=== PATIENT | female | born 1995 | race Two or more races ===

== ENCOUNTER 2019-08-07 14:53 | Outpatient (CLI) | payer OTHER ==
[2019-08-08] MEDS ORDERED: FOLIC ACID1 MG PO (21:09)
== END 2019-08-07 16:15 | disposition home or self-care (01) ==
LOC: PRENATAL 14:53
DX: O26.843 Uterine size-date discrepancy, third trimester (principal); O48.0 Post-term pregnancy

== ENCOUNTER 2019-08-08 20:08 | Inpatient (IN) | payer OTHER ==
[~2019-08-08] VITALS: Ht 165.1 cm; Wt 75.7 kg
[2019-08-08] MEDS ORDERED: FOLIC ACID1 MG PO (21:09)
== END 2019-08-10 16:24 | disposition home or self-care (01) | DRG 807 ==
LOC: OB/GYN 20:08 → LDR 20:08 → OB/GYN 08-09 00:05 → SURH 08-09 12:01 → OB/GYN 08-10 16:24
PROVIDERS: ADMIT Specialist
PROC: 10E0XZZ Delivery of Products of Conception, External Approach (ICD-10-PCS; principal; 2019-08-08)
PROC: 0KQM0ZZ Repair Perineum Muscle, Open Approach (ICD-10-PCS; 2019-08-08)
PROC: 0UQMXZZ Repair Vulva, External Approach (ICD-10-PCS; 2019-08-08)
PROC: 0UQGXZZ Repair Vagina, External Approach (ICD-10-PCS; 2019-08-08)
PROC: 4A1HXCZ Monitoring of Products of Conception, Cardiac Rate, External Approach (ICD-10-PCS; 2019-08-08)
PROC: 4A033R1 Measurement of Arterial Saturation, Peripheral, Percutaneous Approach (ICD-10-PCS; 2019-08-08)
DX: O70.1 Second degree perineal laceration during delivery (principal); Z37.0 Single live birth; Z3A.40 40 weeks gestation of pregnancy